=== PATIENT | male | born 1980 | race Two or more races ===

== ENCOUNTER 2019-01-23 09:54 | Emergency (ER) | payer OTHER ==
[~2019-01-23] VITALS: Ht 162.6 cm; Wt 87.4 kg
[2019-01-23 11:51] VITALS: BP 133/79
== END 2019-01-23 11:53 | disposition home or self-care (01) ==
LOC: ED 11:26
DX: K29.01 Acute gastritis with bleeding (principal); K21.9 Gastro-esophageal reflux disease without esophagitis
CPT/HCPCS: 36415; 80053; 85025; 99283